=== PATIENT | male | born 1995 | race Caucasian/White ===

== ENCOUNTER 2020-10-26 17:12 | Emergency (ER) | payer BC, SELFPAY ==
[2020-10-26 17:18] VITALS: BP 152/97; PULSE 67; RESP 16; TEMP 36.8; O2SAT 100
--- NOTE | 2020-10-26 17:20 | ED.WOUNDLAC ---
HPI - Wound/Laceration General Chief Complaint: Wound/Laceration Stated Complaint: EYEBROW LACERATION Time Seen by Provider: 10/26/20 17:20 History of Present Illness HPI narrative: 25-year-old male presents to urgent care with a laceration to the right eyebrow lateral aspect. Patient states 2 hours prior to arrival patient was hit in the head with a drill. Denies any loss of consciousness. No blurry vision or change in vision. Walks with a normal gait. No nausea or vomiting or diarrhea. No chest pain or shortness of breath. Bleeding is controlled at this time. States he did receive a Tdap prior to his son being born approximately 2 years ago. Onset (ago): hour(s) (2) Place: home Patient tetanus UTD: Yes Context: accidental Associated symptoms: none Treatments prior to arrival: other (None) Related Data Home Medications Medication Instructions Recorded Confirmed fluoxetine 40 mg PO DAILY 10/26/20 10/26/20 Allergies Allergy/AdvReac Type Severity Reaction Status Date / Time No Known Allergies Allergy Verified 10/26/20 17:18 Review of Systems Review of Systems: Narrative: CONSTITUTIONAL: Denies fever, chills, or sweats. EYES: Denies visual changes, redness, or discharge. ENT: Denies rhinorrhea, congestion, sore throat, or otalgia. CARDIOVASCULAR: Denies chest pain, palpitations, or edema. RESPIRATORY: Denies cough or dyspnea. GASTROINTESTINAL: Denies abdominal pain, nausea, vomiting, or diarrhea. GENITOURINARY: Denies dysuria or hematuria. SKIN: Denies rash or itching. Laceration right eyebrow MUSCULOSKELETAL: Denies back pain, joint pain, or myalgia. NEUROLOGIC: Denies headache, numbness, or weakness. PSYCHIATRIC: Denies anxiety or depression. All other systems reviewed are negative, except as documented in HPI. PMFSH Comments At the time of my signature, I reviewed and agree with the nursing past medical, surgical, social, and family history. There is no relevant family history pertinent to the patient complaint. Exam Narrative: Exam Narrative: GENERAL: This is a well-nourished, well-developed patient, in no apparent distress. HEAD: normocephalic, atraumatic. EYES: PERRL. Sclera clear/white. Vision is grossly intact. EARS: External ears normal, auditory canals clear and without drainage, TMs normal without perforation. Hearing grossly intact. NECK: Neck supple, non-tender without lymphadenopathy, masses or thyromegaly. CARDIOVASCULAR: Regular rate and rhythm without murmurs, gallops, or rubs. RESPIRATORY: Clear to auscultation. Breath sounds equal bilaterally. No wheezes, rales, or rhonchi. GASTROINTESTINAL: Abdomen soft, non-tender, nondistended. Bowel sounds are active. No hepato-splenomegaly, or palpable masses. No guarding. SKIN: warm, no suspicious lesions or rash, good texture and turgor. Laceration NEURO: awake, alert, and oriented to person, place and time. There were no obvious focal neurologic abnormalities. EXTREMITIES: No clubbing, cyanosis, or edema. No joint tenderness, effusion, or edema noted. No calf tenderness. Negative Homans sign bilaterally. BACK: Nontender without deformity or crepitance. No flank tenderness. HENMT: Head images: 1. 1.5 open laceration Course Vital Signs Vital signs: Vital Signs Temperature 98.3 F 10/26/20 17:18 Pulse Rate 67 10/26/20 17:18 Respiratory Rate 16 10/26/20 17:18 Blood Pressure 152/97 H 10/26/20 17:18 Pulse Oximetry 100 10/26/20 17:18 Temperature 98.3 F 10/26/20 17:18 Pulse Rate 67 10/26/20 17:18 Respiratory Rate 16 10/26/20 17:18 Blood Pressure 152/97 H 10/26/20 17:18 Pulse Oximetry 100 10/26/20 17:18 Reviewed, all within defined limits except for blood pressure, discussed with patient that his blood pressure is elevated and he needs to follow-up within 7 to 10 days with a primary care provider. This can be due to pain, stress, visiting the urgent care or can be chronic which he needs evaluated by primary care. [place]
== END 2020-10-26 17:45 | disposition home or self-care (01) ==
PROVIDERS: Emergency Provider Nurse Practitioner; PCP Internal Medicine
DX: S01.111A Laceration without foreign body of right eyelid and periocular area, initial encounter (principal); W22.8XXA Striking against or struck by other objects, initial encounter
CPT/HCPCS: 12011; 99212; G0463

== ENCOUNTER 2022-04-18 15:25 | Emergency (ER) | payer OTHER, BC, SELFPAY ==
--- NOTE | 2022-04-18 15:27 | ED.LOWEXIN ---
HPI - Extremity Injury (Lower) General Stated Complaint: dislocated right knee Time Seen by Provider: 04/18/22 15:39 Source: patient and RN notes reviewed Mode of arrival: ambulatory Limitations: no limitations History of Present Illness HPI Narrative: 27-year-old male presents concern for knee injury. Reports earlier this morning a tire hit his kneecap and caused his kneecap to go out of place. Reports that went back in place. He reports since then he has had some swelling and achiness to the knee. Reports it worsens with weightbearing. Reports he tried ice. He denies any open skin, redness, warmth. Reports distal strength, sensation is normal. MD complaint: knee injury Related Data Allergies Allergy/AdvReac Type Severity Reaction Status Date / Time No Known Allergies Allergy Verified 10/26/20 17:18 Review of Systems Review of Systems: CONSTITUTIONAL: Denies malaise, chills, sweats, or fever. SKIN: Denies rash or itching, open skin, laceration, abrasion, redness, warmth MUSCULOSKELETAL: Reports left knee pain and swelling NEUROLOGIC: Denies numbness, weakness All systems reviewed & are unremarkable except as noted in HPI and below PMFSH Comments At time of signature, agree with nursing past medical, surgical, social and family history. There is no relevant family history pertinent to the presenting complaint Exam Narrative: GENERAL: Well-appearing, well-nourished, and in no acute distress. HEAD: Normocephalic, atraumatic. EYES: PERRLA, conjunctivae clear NECK: Supple. CHEST: Speaks in full sentences. No respiratory distress. HEART: Regular rate and rhythm. Normal and equal peripheral pulses. EXTREMITIES: Left knee has normal strength and sensation, grossly normal range of motion. Mild edema, no ecchymosis. 5/5 strength with knee flexion and extension. Normal sensation with sensitivity to light touch and pain. Anterior tenderness. No open wounds, no skin tenting, no devitalized tissue or atrophy, no trophic changes, no obvious deformity, alignment normal, nearby joints and structures intact. Distal pulses palpable and equal bilaterally, skin warm, dry, pink. Capillary refill less than 3 seconds. Lever test normal SKIN: Warm, dry, no rash. NEURO: Alert and oriented x3. PSYCH: Normal mood and affect Course Course Emergency Course: Patient is aware of diagnosis, understands and agrees to treatment plan. Anticipatory guidance given. Patient agrees to follow-up as directed and is aware of reasons to seek care at the emergency department. Portions of this record may have been created with voice recognition software Level of Care: Express Care Visit Vital Signs Vital signs: Reviewed. MDM - Extremity Injury (Lower) MDM Narrative Medical decision making narrative: Patients injury and pain is consistent with musculoskeletal etiology. No signs of neurological or vascular compromise on exam. Compartments and tissues are soft without signs of compartment syndrome. Pain is felt appropriate for further evaluation on an outpatient basis. Critical Care Time Critical Care Time Critical Care Time: No Discharge Plan Discharge Clinical Impression: Pain and swelling of right knee Patient Disposition: Home, Self-Care Condition: Stable Instructions: Swollen Knee Joint (ED) Additional Instructions: Avoid activities that cause pain until the pain subsides. Ice to the area 20-30 minutes 4-6 times a day Elevate above heart Elastic wrap as directed for comfort for the next 5-7 days Tylenol for lesser pain Ibuprofen 600-800mg regularly for the next 2-3 days for the inflammation Follow up with your primary care provider if the condition is not improving within 1 week. If the condition worsens with numbness, tingling, decrease sensation with weakness seek treatment in the emergency room immediately. Prescriptions: No Action fluoxetine 40 mg capsule 40 mg PO DAILY Follow-up/Referrals: Corinna,Kendell
[2022-04-18 15:32] VITALS: BP 143/84; PULSE 84; RESP 16; TEMP 37.1; O2SAT 100
== END 2022-04-18 15:53 | disposition home or self-care (01) ==
PROVIDERS: Emergency Provider Nurse Practitioner; PCP Internal Medicine
DX: M25.561 Pain in right knee (principal); M25.461 Effusion, right knee
CPT/HCPCS: 99212; G0463

== ENCOUNTER 2023-12-31 05:29 | Emergency (ER) | payer BC, SELFPAY ==
[2023-12-31] VITALS (11 sets, daily range): BP systolic 108–121; BP diastolic 73–78; PULSE 53–61; RESP 10–18; TEMP 36.5–36.7; O2SAT 98–100
--- NOTE | ~2023-12-31 | XR_ITS ---
Portable chest x-ray Comparison: None Clinical History: Chest pain Findings: Lungs are clear, without focal consolidation or pleural effusion. Cardiomediastinal silho uette is unremarkable. Bones and soft tissues are unremarkable. Impression: Normal chest. Reviewed, dictated and finalized at location . Impression: Normal chest.
--- NOTE | 2023-12-31 05:50 | ECG_ITS ---
Measurements Intervals [place] Rate: 54 P: 69 [place]: 157 QRS: 64 QRSD: 98 T: 65 QT: 389 QTc: 369 Interpretive Statements SINUS BRADYCARDIA ST ELEVATION IN ANTEROLAT/INF LEADS, PROBABLY EARLY REPOLARIZATION BORDERLINE ECG NO PREVIOUS ECG AVAILABLE FOR COMPARISON Electronically Signed On 12-31-2023 6:42:30 CDT by Alexandru Joaquin D.O.
[2023-12-31 06:03] LABS: Basophils Percent Auto 0.4 % (0.2-1.2); Eosinophils Absolute Auto 0.1 K/mm3 (0-0.3); Eosinophils Percent Auto 1.4 % (0-4.4); Hemoglobin 16.1 g/dL (14.0-18.0); Immature Granulocyte Absolute 0.01 K/mm3 (0.00-0.031); Immature Granulocyte Percent A 0.1 % (0-0.5); Lymphocytes Absolute Auto 2.87 K/mm3 (0.9-3.2); Lymphocytes Percent Auto 34.6 % (18.3-44.2); Mean Corpuscular HGB Conc 34.3 g/dl (32-36); Mean Corpuscular Volume 87.5 fl (80-100); Mean Platelet Volume 10.6 fl (7.4-10.4); Monocytes Absolute Auto 0.9 K/mm3 (0.1-0.6); Monocytes Percent Auto 11.3 % (2.6-8.5); Neutrophils Absolute Auto 4.3 K/mm3 (1.3-6.7); Neutrophils Percent Auto 52.2 % (45.5-73.1); Platelet Count Result 235 k/mm3 (150-375); Red Blood Count 5.37 M/mm3 (4.6-6.20); White Blood Count 8.3 K/mm3 (4.5-10.0)
--- NOTE | 2023-12-31 06:04 | ED.GENADULT ---
HPI - General Adult General Chief complaint: Chest Pain <Armaan Nelson MD - Last Filed: 12/31/23 06:53> Stated complaint: left sided rib pain <Armaan Nelson MD - Last Filed: 12/31/23 06:53> Time Seen by Provider: 12/31/23 06:01 <Armaan Nelson MD - Last Filed: 12/31/23 06:53> History of Present Illness HPI narrative: Patient 28-year-old gentleman who presents emergency department with chief complaint of chest pain. Patient reports he has been having pain in the left side of his chest that radiates to his back the patient states the pain started 2 days ago and reports has been pretty well constant since then the patient states the pain is improved with Tylenol or ibuprofen patient reports no trauma reports no was shortness of breath denies diaphoresis reports no prior cardiac history denies sympathomimetic use <Armaan Nelson MD - Last Filed: 12/31/23 06:53> Related Data Allergies/adverse reactions: Allergies Allergy/AdvReac Type Severity Reaction Status Date / Time No Known Allergies Allergy Verified 10/26/20 17:18 <Armaan Nelson MD - Last Filed: 12/31/23 06:53> Review of Systems Review of Systems: A 10 system review of systems was completed on the patient and is negative except for what is stated in the HPI. Nursing and ancillary documentation was reviewed. <Armaan Nelson MD - Last Filed: 12/31/23 06:53> Exam Narrative: GENERAL: Well-appearing, well-nourished, and in no acute distress. HEAD: Normocephalic, atraumatic. EYES: PERRLA and EOMI. ENT: Nares clear, no rhinorrhea or epistaxis. Mucous membranes moist. NECK: Supple. CHEST: Clear to auscultation. No respiratory distress. HEART: Regular rate and rhythm. No murmur heard. Normal peripheral pulses. ABDOMEN: Soft, nontender, nondistended, normal active bowel sounds. EXTREMITIES: Normal range of motion. No edema. SKIN: Warm, dry, no rash. NEURO: No focal deficits. Alert and oriented x3. PSYCH: Normal mood and affect. <Armaan Nelson MD - Last Filed: 12/31/23 06:53> Course Course Emergency Course: Troponin negative x2. Patient felt appropriate for outpatient follow-up with PCP. Discussed treatment plan and patient verbalized understanding. <Inocencio Abarca MD - Last Filed: 12/31/23 09:45> Vital Signs Vital signs: Vital Signs Temperature 97.7 F 12/31/23 05:30 Pulse Rate 61 12/31/23 05:30 Respiratory Rate 16 12/31/23 05:30 Blood Pressure 115/76 12/31/23 05:30 Pulse Oximetry 100 12/31/23 05:30 Oxygen Delivery Room Air 12/31/23 05:30 Temperature 97.7 F 12/31/23 05:30 Pulse Rate 53 L 12/31/23 07:12 Respiratory Rate 16 12/31/23 07:12 Blood Pressure 108/78 12/31/23 07:12 Pulse Oximetry 99 12/31/23 07:12 Oxygen Delivery Room Air 12/31/23 06:05 <Armaan Nelson MD - Last Filed: 12/31/23 06:53> Vital Signs Temperature 97.7 F 12/31/23 05:30 Pulse Rate 61 12/31/23 05:30 Respiratory Rate 16 12/31/23 05:30 Blood Pressure 115/76 12/31/23 05:30 Pulse Oximetry 100 12/31/23 05:30 Oxygen Delivery Room Air 12/31/23 05:30 Temperature 97.7 F 12/31/23 05:30 Pulse Rate 53 L 12/31/23 07:12 Respiratory Rate 16 12/31/23 07:12 Blood Pressure 108/78 12/31/23 07:12 Pulse Oximetry 99 12/31/23 07:12 Oxygen Delivery Room Air 12/31/23 06:05 <Inocencio Abarca MD - Last Filed: 12/31/23 09:45> Medical Decision Making MDM Narrative Medical decision making narrative: Differential diagnosis includes ACS, noncardiac chest pain, pneumothorax, pericarditis EKG showed early repolarization with the LVH Laboratory studies showed a normal CBC normal CMP troponin 0.015. Chest x-ray shows no focal infiltrate Patient has a heart score of 1. Given the troponin was negative but detectable the patient will undergo a 3 hour repeat troponin <Joe
[2023-12-31] MEDS: ASPIRIN 81 MG CHEWABLE TABLET 324 MG PO (06:10)
[2023-12-31 06:14] LABS: Prothrombin Time 13.4 Seconds (11.1-14.7)
[2023-12-31 06:15] LABS: Alanine Aminotransferase 20 U/L (6-50); Albumin Level 4.2 g/dL (3.5-5.1); Alkaline Phosphatase 42 U/L (38-126); Anion Gap 4 mmol/L (8-16); Aspartate Amino Transferase 29 U/L (17-59); Blood Urea Nitrogen 15 mg/dL (9-20); Calcium 9.4 mg/dL (8.4-10.2); Carbon Dioxide 26 mmol/L (22-30); Chloride 106 mmol/L (98-107); Estimated CRCL calculation 128 ml/min; Estimated Glomerular Filt Rate > 60; Glucose 104 mg/dL (65-110); Lipase 94 U/L (23-300); Potassium 4.7 mmol/L (3.4-5.0); Sodium 136 mmol/L (137-145)
[2023-12-31 06:24] LABS: Troponin I 0.015 ng/mL (0.000-0.034)
--- NOTE | 2023-12-31 08:43 | ECG_ITS ---
Measurements Intervals [place] Rate: 46 P: 51 [place]: 166 QRS: 63 QRSD: 87 T: 65 QT: 408 QTc: 360 Interpretive Statements SINUS BRADYCARDIA WITH SINUS ARRHYTHMIA EARLY REPOLARIZATION IN DIFFUSE LEADS- PROBABLY EARLY REPOLARIZATION ABNORMALITY ABNORMAL ECG COMPARED TO ECG 12/31/2023 05:54:31 HEART RATE HAS DECREASED SINUS ARRHYTHMIA NOW PRESENT Electronically Signed On 12-31-2023 9:10:05 CDT by Alexandru Joaquin D.O.
[2023-12-31 09:20] LABS: Troponin I < 0.012 ng/mL (0.000-0.034)
== END 2023-12-31 10:11 | disposition home or self-care (01) ==
PROVIDERS: Emergency Provider Emergency Medicine; PCP Internal Medicine
DX: R07.89 Other chest pain (principal)
CPT/HCPCS: 36415; 71045; 80053; 83690; 84484; 85025; 85610; 85730; 93005; 99284; A9270